=== PATIENT | female | born 1935 | race Caucasian/White ===

== ENCOUNTER → 2017-04-01 | Day surgery (SDC) | payer MEDICARE, OTHER ==
[2017-04-01] VITALS (9 sets, daily range): BP systolic 111–150; BP diastolic 63–105; PULSE 60–80; RESP 13–23; O2SAT 93–98
[~2017-04-01] VITALS: Ht 166.4 cm; Wt 64.0 kg
[~2017-04-01] MED LIST: 0.9% Sodium Chloride 1,000 ML IV SCH; 0.9% Sodium Chloride 250 ML ONE; Bupivacaine-MPF 0.5% 30 mL Inj ONE; CALC117719 PO; CARV12.52 PO; CHOL100043 PO; FUR20 PO; HYDROcodone-APAP 5-325 mg Tablet PO PRN; Heparin 10,000 Unit/1,000 mL NS Premix IV ONE; Ondansetron 2 mg/mL 2 mL Inj IVPUSH PRN; POTA10TA12 PO; Vancomycin 1,000 mg Inj ONE; Vancomycin Inj 1,000 MG in IV Premix 1 EACH IV SCH; WARF5TAB PO; Water for Injection 50 ML IV ONE; [UNRECOGNIZED DRUG - CODE] IM; fentaNYL-PF 50 mCg/mL 2 mL Inj ONE
--- NOTE | 2017-04-01 06:00 | NUR ---
ADMISSION NOTE FEMALE PT ADMITTED FOR GENERATOR CHANGE. DISCUSSED PLAN OF CARE WITH PT. SEE ADMIT AND FLOW SHEET
[2017-04-01 06:45] LABS: BASOPHILS % (AUTO) 0.9 % (0-3); EOSINOPHILS % (AUTO) 3.9 % (0-5); MONOCYTES % (AUTO) 9.4 % (4-12); Mean Corpuscular Hemoglobin 28.7 pg (27.0-35.0); Mean Corpuscular Volume 92 fL (81-100); NEUTROPHILS % (AUTO) 59.3 % (40-74); Platelet Count 201 bil/L (150-400)
[2017-04-01 07:14] LABS: INR 1.94 ratio
--- NOTE | 2017-04-01 10:15 | NUR ---
POST PROCEDURE NOTE RETURNED FROM PIPE PROCESSOR. SEE FLOW SHEET
--- NOTE | 2017-04-01 11:22 | OP ---
[address] [address] OPERATIVE REPORT PATIENT: SELWYN ADAIR : 1935 MR#: [id number] ADMIT: 04/01/2017 JOB ID: [id number] DATE OF SURGERY: 04/01/2017 PREOPERATIVE DIAGNOSIS(ES): Pacemaker battery depletion. POSTOPERATIVE DIAGNOSIS(ES): Pacemaker battery depletion. PROCEDURES PERFORMED: 1. Dual-chamber pacemaker generator replacement. 2. Pacemaker lead repair. SURGEON: Jose Daniel Harris MD [employer] SUPERVISOR: Charles Tavera. IMPLANTED DEVICE: [employer] model [id number]. EXPLANTED DEVICE: [employer] [id number]. CHRONIC DEVICES: 1. Right atrial lead [employer] 1888PC 46cm, serial #[id number]. 2. RV lead [employer] 1888CC 58 cm, serial #[id number]. ANESTHESIA: Bolus dosing Versed and fentanyl were utilized for appropriate level of sedation. INDICATION: Mrs. 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 After discussion of risks and benefits of generator replacement, she opted to proceed. PROCEDURE DESCRIPTION: Following informed consent the patient was taken to the EP laboratory in a fasting nonsedated state where she was prepped and draped in usual sterile fashion. The left infraclavicular surgical scar was infiltrated with 40 cc of a 50/50 mixture of bupivacaine and lidocaine. Once adequate sedation achieved, a 3 cm transverse was performed overlying previous surgical scar. Dissection was carried down to the capsule and the generator and leads were freed loose of adhesions. An outer insulation breach was noted at the juncture of the RV lead. The lead function was excellent with stable impedances checked multiple times and excellent threshold of sub 1V. No noise was identified. The pocket was copiously irrigated with antibiotic solution. A new pacemaker generator brought to the field and the RV lead was moved over to the new generator. The RA lead was then moved over. The lead was tested again and showed excellent lead parameters. An anchoring sleeve was then brought to the field and used to seal off the inflation breach with 2-0 Ti-Cron sutures. The entire system was then replaced into the capsule and the incision was closed with running layers of absorbable suture. The wound was dressed with skin adhesive and a small dressing. At the end the procedure, the needle, sponge, and instrument counts were all correct. COMPLICATIONS: None. ESTIMATED BLOOD LOSS: Negligible. DEVICE MEASURED DATA: 1. Right atrial lead 3.3 to 4 mV, flutter waves 400 ohms. 2. RV lead, R waves down to 30 beats per minute 530 ohms 0.75 V at 0.4 msec. FINAL PROGRAM PARAMETERS: VVIR 60 beats per minute. IMPRESSION: Successful dual-chamber pacemaker generator placement. PLAN: 1. . 2. Doxycycline 100 p.o. daily x7 days. 3. Wound recheck in one week. ATTENDING STATEMENT: Jose Daniel Harris MD, electrophysiology attending, was present for and has supervised/performed all aspects of this procedure.
--- NOTE | 2017-04-01 13:15 | NUR ---
DISCHARGE NOTE UP IN ROOM. TOLERATED WELL. DRESSING DRY AND INTACT. INSTRUCTIONS GIVEN. HOME WITH FRIEND
== END | disposition home or self-care (01) ==
LOC: SOUO 02:02
PROVIDERS: ATTEND Internal Medicine Cardiovascular Disease
PROC: 02WA0MZ Revision of Cardiac Lead in Heart, Open Approach (ICD-10-PCS; principal; 2017-04-01)
PROC: 0JPT0PZ Removal of Cardiac Rhythm Related Device from Trunk Subcutaneous Tissue and Fascia, Open Approach (ICD-10-PCS; 2017-04-01)
PROC: 0JH606Z Insertion of Pacemaker, Dual Chamber into Chest Subcutaneous Tissue and Fascia, Open Approach (ICD-10-PCS; 2017-04-01)
DX: Z45.010 Encounter for checking and testing of cardiac pacemaker pulse generator [battery] (principal); T82.110A Breakdown (mechanical) of cardiac electrode, initial encounter; I44.2 Atrioventricular block, complete; I42.9 Cardiomyopathy, unspecified; I48.0 Paroxysmal atrial fibrillation; I49.5 Sick sinus syndrome; I10 Essential (primary) hypertension; E78.5 Hyperlipidemia, unspecified; Z79.01 Long term (current) use of anticoagulants; Z98.890 Other specified postprocedural states; Z87.891 Personal history of nicotine dependence; Y71.1 Therapeutic (nonsurgical) and rehabilitative cardiovascular devices associated with adverse incidents
CPT/HCPCS: 33228; 36415; 80048; 85025; 85610; 93005; 99152; 99153; C1785; J1644; J2250; J3010; J3370; J7030; J7050